=== PATIENT | female | born 1945 | race Caucasian/White ===

== ENCOUNTER 2016-09-28 10:26 | Emergency (ER) | payer MEDICARE | END 2016-09-28 11:30 | disposition home or self-care (01) | DX: R07.89 Other chest pain (principal); M79.7 Fibromyalgia ==

== ENCOUNTER 2018-09-20 12:53 | Outpatient (CLI) | payer MEDICARE ==
--- NOTE | 2018-09-23 09:36 | DEXA Report ---
Reason: OSTEOPOROSIS SCREENING Procedure Date: 09/20/2018 Accession Number: [id number] / [id number] Procedure: DEX - Dexa Spine and/or Hip CPT Code: FULL RESULT: EXAM: Dexa Spine and/or Hip DATE: 09/20/2018 1:32 PM CLINICAL HISTORY: OSTEOPOROSIS SCREENING TECHNIQUE: Dual energy x-ray absorptiometry (DXA) was performed on a ishBowl System. Regions measured are the AP Spine, femoral neck, and if needed forearm. COMPARISON: None. In accordance with the International Society for Clinical Densitometry (ISCD) guidelines, data from previous exams may be reanalyzed using current recommendations and techniques. This is done to allow a more accurate basis for comparison with the current study. FINDINGS: The data for the lumbar spine is as follows: BMD (g/cm/cm) T-SCORE Z-SCORE REGION L1 1.096 -0.3 0.7 L2 1.208 0.1 1.1 L3 1.221 0.2 1.2 L4 1.012 -1.6 -0.6 TOTAL 1.128 -0.4 0.5 NOTE: All evaluable vertebrae are used for classification The data for the hip is as follows: BMD (g/cm/cm) T-SCORE Z-SCORE REGION Neck 0.820 -1.6 -0.3 TOTAL 0.947 -0.5 0.6 NOTE: The femoral neck or total proximal femur, whichever is lowest, is used for classification. IMPRESSION: THE WHO CLASSIFICATION BASED ON THE INTERNATIONAL REFERENCE STANDARD IS OSTEOPENIA. THE FRACTURE RISK IS INCREASED. RECOMMENDATION: Patients with diagnosis of osteoporosis or osteopenia should have regular bone mineral density assessment. For those eligible for Medicare, routine testing is allowed once every 2 years. Testing frequency can be increased for patients who have rapidly progressing disease or for those who are receiving medical therapy to restore bone mass. COMMENT: World Health Organization (WHO) definitions for osteoporosis and osteopenia: NORMAL BMD: T-score at -1.0 or higher, fracture risk is low OSTEOPENIA BMD: T-score between -1.0 and -2.5, fracture risk is increased. OSTEOPOROSIS BMD: T-score at -2.5 or lower, fracture risk is high. National Osteoporosis Foundation recommends: 1. Obtain adequate dietary calcium (at least 1200 mg per day) and vitamin D (400-800 international units per day). 2. Participate, as appropriate, in regular weightbearing and muscle-strengthening exercise. 3. Avoid tobacco use and reduce alcohol and caffeine intake. 4. For more detailed information see the website at www.NOF.org.
== END 2018-09-20 12:54 | disposition home or self-care (01) ==
LOC: DI 12:53
PROVIDERS: ATTEND Student in an Organized Health Care Education/Training Program
DX: Z13.820 Encounter for screening for osteoporosis (principal); M85.88 Other specified disorders of bone density and structure, other site
CPT/HCPCS: 77080

== ENCOUNTER 2018-09-26 13:45 | Outpatient (CLI) | payer MEDICARE ==
--- NOTE | 2018-09-27 09:11 | Mammography Report ---
Reason: SCREENING MAMMO Procedure Date: 09/26/2018 Accession Number: [id number] / [id number] Procedure: ELAINA - Screening Mammo w/Thanh CPT Code: FULL RESULT: EXAM: Screening Mammo w/Thanh DATE: 09/26/2018 4:25 PM CLINICAL HISTORY: Screening encounter. No reported risk factors. TECHNIQUE: Bilateral CC and MLO views were obtained. COMPARISON: 03/17/2016 and 10/08/2014. FINDINGS: The breasts demonstrate diffuse fatty replacement bilaterally. There are bilateral coarse typically benign calcifications. No suspicious masses, clustered microcalcifications, or regions of architectural distortion are identified. IMPRESSION: Benign findings RECOMMENDATION: Routine annual screening unless otherwise clinically indicated. BIRADS CATEGORY 2: Benign findings STANDARD QUALIFYING STATEMENTS: 1. This examination was not reviewed with the aid of Computer-Aided Detection (CAD). 2. A negative or benign imaging report should not preclude biopsy if clinically suspicious findings are present. 3. Dense breasts may obscure an underlying neoplasm. 4. This examination was reviewed with the aid of 3D breast imaging (tomosynthesis).
== END 2018-09-26 13:46 | disposition home or self-care (01) ==
LOC: DI 13:45
PROVIDERS: ATTEND Student in an Organized Health Care Education/Training Program
DX: Z12.31 Encounter for screening mammogram for malignant neoplasm of breast (principal)
CPT/HCPCS: 77063; 77067

== ENCOUNTER 2021-03-18 11:44 | Emergency (ER) | payer MEDICARE ==
[2021-03-18 12:27] LABS: BASOPHILS % (AUTO) 0.4 %; EOSINOPHILS # (AUTO) 0.1 10^3/uL (0.0-0.7); EOSINOPHILS % (AUTO) 1.3 %; HCT - HEMATOCRIT 39.8 % (37.0-47.0); HGB - HEMOGLOBIN 13.1 g/dL (12.0-16.0); LYMPHOCYTES # (AUTO) 2.4 10^3/uL (1.5-3.5); LYMPHOCYTES % (AUTO) 29.7 %; MEAN CORPUSCULAR HEMOGLOBIN 30.5 pg (27.0-31.0); MEAN CORPUSCULAR HGB CONC 32.9 g/dL (32.0-36.0); MEAN CORPUSCULAR VOLUME 92.8 fL (81.0-99.0); MEAN PLATELET VOLUME 9.5 fL (7.9-10.8); MONOCYTES # (AUTO) 0.8 10^3/uL (0.0-1.0); MONOCYTES % (AUTO) 9.9 %; NEUTROPHILS # (AUTO) 4.6 10^3/uL (1.5-6.6); NEUTROPHILS % (AUTO) 58.3 %; PLT - PLATELET COUNT 261 10^3/uL (130-450); RED BLOOD COUNT 4.29 10^6/uL (4.20-5.40); RED CELL DISTRIBUTION WIDTH 13.4 % (12.0-15.0); WHITE BLOOD COUNT 7.9 x10^3/uL (4.8-10.8)
[2021-03-18] MEDS ORDERED: IOVERSOL 320 100 ML VIAL IVP ONE ×2 (12:36→13:11)
[2021-03-18 12:37] LABS: ALBUMIN 4.6 g/dL (3.2-5.5); ALBUMIN/GLOBULIN RATIO 1.2 (1.0-2.2); BILIRUBIN,TOTAL 0.8 mg/dL (0.2-1.0); CREATININE 0.8 mg/dL (0.4-1.0); POTASSIUM 4.3 mmol/L (3.5-5.0); TOTAL PROTEIN 8.3 g/dL (6.7-8.2)
--- NOTE | 2021-03-18 12:39 | ED Physician Documentation ---
PD HPI ABD PAIN - Stated complaint Stated Complaint: LEFT SIDE PX - Chief complaint Chief Complaint: Abd Pain - History obtained from History obtained from: Patient - History of Present Illness Timing - onset: Today, How many days ago (2) Timing - duration: Days (2) Timing - details: Gradual onset Pain level max: 7 Pain level now: 6 Quality: Aching, Pain Location: RLQ, LLQ Radiation: No: Chest, , Lower back, Left flank, Left shoulder, Right flank, Right shoulder, Upper back Improved by: No: Eating, Laying still, Vomiting, BM, Position, Meds Worsened by: No: Eating, Moving, Breathing, Position, Palpation Associated symptoms: Constipation. No: Nausea, Vomiting - Additional information Additional information: 75-year-old female presents to the emergency department stating that she had right-sided lower abdominal pain yesterday and today has developed left-sided lower abdominal pain. Nothing makes it better or worse. Had a colonoscopy a few months ago which was normal other than a polyp. She states she was constipated recently and had to strain on the toilet to have a bowel movement. She states that the pain began after that. No fevers. No chills. No recent antibiotics. No trauma or falls. 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 - Present Medications Home Medications: Ambulatory Orders Medication Instructions Recorded Confirmed Lisinopril 20 mg PO DAILY 09/28/16 03/18/21 Amox/Clav 875/125 [Augmentin] 1 each PO Q8H #30 tablet 03/18/21 Ezetimibe [Zetia] 10 mg PO DAILY 03/18/21 03/18/21 Ondansetron Odt [Zofran] 4 mg TL Q6H PRN #10 tablet 03/18/21 Oxycodone HCl [Roxicodone] 5 mg PO Q6HR PRN #14 tablet 03/18/21 traMADol [Ultram] 50 mg PO Q6HR PRN 03/18/21 03/18/21 - Allergies Allergies/Adverse Reactions: Allergies Allergy/AdvReac Type Severity Reaction Status Date / Time codeine AdvReac Unknown Verified 03/18/21 11:59 - Social History Does the pt smoke?: No Smoking Status: Never smoker Does the pt drink ETOH?: No Does the pt have substance abuse?: No PD ED PE NORMAL - Vitals Vital signs reviewed: Yes - General General: Alert and oriented X 3, No acute distress, Well developed/nourished - HEENT HEENT: Moist mucous membranes - Neck Neck: Supple, no meningeal sign - Cardiac Cardiac: RRR - Respiratory Respiratory: No respiratory distress, Clear bilaterally - Abdomen Abdomen: Soft, Non distended, Other (Mild tenderness to palpation left lower quadrant. No peritoneal signs. No pain with range of motion of the leg. No CVA tenderness) - Back Back: No CVA TTP, No spinal TTP - Derm Derm: Warm and dry - Extremities Extremities: Normal ROM s pain, Other (Neurovascular intact. Good pulses) - Neuro Neuro: Alert and oriented X 3, No motor deficit, No sensory deficit - Psych Psych: Normal mood, Normal affect Results - Vitals Vitals: Vital Signs - 24 hr 03/18/21 11:54 Temperature 36.1 C L Heart Rate 91 Respiratory 16 Rate Blood Pressure 145/89 H O2 Saturation 97 Oxygen O2 Source Room air - Labs Labs: Laboratory Tests 03/18/21 03/18/21 03/18/21 12:16 12:16 13:15 WBC 7.9 RBC 4.29 Hgb 13.1 Hct 39.8 MCV 92.8 MCH 30.5 MCHC 32.9 RDW 13.4 Plt Count 261 MPV 9.5 Neut # (Auto) 4.6 Lymph # (Auto) 2.4 Roane # (Auto) 0.8 Eos # (Auto) 0.1 Baso # (Auto) 0.0 Absolute Nucleated RBC 0.00 Nucleated RBC % 0.0 Sodium 136 Potassium 4.3 Chloride 100 L Carbon Dioxide 26 Anion Gap 10.0 BUN 11 Creatinine 0.8 Estimated GFR (MDRD) 70 L Glucose 114 H Calcium 10.0 Total Bilirubin 0.8 AST 24 ALT 19 Alkaline Phosphatase 70 Total Protein 8.3 H Albumin 4.6 Globulin 3.7 Albumin/Globulin Ratio 1.2 Lipase 24 Urine Color YELLOW Urine Clarity CLEAR Urine pH 6.0 Ur Specific Alexis 1.025 Urine Protein NEGATIVE Urine Glucose (UA) NEGATIVE Urine Ketones NEGATIVE Urine Occult Blood NEGATIVE Urine Nitrite NEGATIVE Urine Bilirubin NEGATIVE Urine Urobilinogen 0.2 (NORMAL) Ur Leukocyte Esterase SMALL H Urine RBC 0-5 Urine WBC 4-5 Ur Squamous Epith Cells MOD Squamous H Urine Bacteria Rare Urine Mucus Moderate Strands Ur Microscopic Review INDICATED Urine Culture Comments NOT INDICATED - Rads (name of study) CT abdomen pelvis Radiology: Prelim report reviewed, EMP read contemporaneously, See rad report (Acute uncomplicated diverticulitis involving the proximal sigmoid colon in the left lower quadrant. No abscess collection. No evidence of perforation. No free fluid or free air. Right ventral hernia containing fat only.) PD MEDICAL DECISION MAKING - ED course Complexity details: reviewed results, re-evaluated patient, considered differential, d/w patient ED course: 75-year-old female with what appears to be acute diverticulitis on CT scan. No fever or leukocytosis. Discussed risks and benefits of antibiotics versus watchful waiting to see if this resolves, patient has elected antibiotics at this time. Patient is well-appearing, nontoxic. Afebrile. Patient counseled regarding signs and symptoms for which I believe and urgent re-evaluation would be necessary. Patient with good understanding of and agreement to plan and is comfortable going home at this time This document was made in part using voice recognition software. While efforts are made to proofread this document, sound alike and grammatical errors may occur. I am prescribing a short course of short-acting opioid pain medication for this patient. I have reviewed the patients [employer] and no concerning findings were noted. I have discussed that the opioids are for short term therapy only, and will not be refilled from the ED. Departure - Departure Disposition: 01 Home, Self Care Clinical Impression: Diverticulitis Condition: Good Instructions: ED Diverticulitis Follow-Up: SKYLAR LLOYD PA [Primary Care Provider] - Within 1 week Prescriptions: Oxycodone HCl [Roxicodone] 5 mg PO Q6HR PRN #14 tablet PRN Reason: Abdominal Pain Amox/Clav 875/125 [Augmentin] 1 each PO Q8H #30 tablet Ondansetron Odt [Zofran] 4 mg TL Q6H PRN #10 tablet PRN Reason: Nausea / Vomiting Comments: Follow-up with your doctor for further care. Take all antibiotics until gone. Return if you worsen. I am prescribing a short course of narcotic pain medication for you. These are potentially dangerous and addictive medications that should be used carefully. These medications may constipate you. Take an zriz-mug-yvdbsga stool softener (docusate) twice daily with plenty of water while taking these medications. If you go 24 hours without a bowel movement, take pfem-qhj-utshedx miralax, per or ann instructions. Do not drink or drive while taking these medications. If you received narcotic or sedating medications while in the emergency department, do not drive for 24 hours. Store this medication in a safe, secure place and out of reach of children. It is a violation of federal law to give or sell this medication to another person or to use in a manner other than prescribed. The ED will not refill narcotic prescriptions, including prescriptions lost or stolen. To dispose of unwanted medications: 1. [facility] at [address] in [place] has a medication drop box. They accept prescription medications (in pill form) Sunday through Sunday 9:00 a.m. to 5:00 p.m. 2. The [facility] [employer] [facility] accepts prescription medications (in pill form only) for disposal year round. Call for more information. 3. Contact the [facility] for the next [facility] sponsored prescription drug collection event. , [phone], or [phone];
[2021-03-18 13:23] LABS: BILIRUBIN,URINE NEGATIVE (NEGATIVE); GLUCOSE, URINE (UA) NEGATIVE (NEGATIVE); KETONES,URINE (UA) NEGATIVE (NEGATIVE); LEUKOCYTE ESTERASE, URINE SMALL (NEGATIVE); NITRITE,URINE NEGATIVE (NEGATIVE); OCCULT BLOOD,URINE NEGATIVE (NEGATIVE); PROTEIN,URINE NEGATIVE (NEGATIVE); UROBILINOGEN,URINE 0.2 (NORMAL) E.U./dL (NORMAL)
[2021-03-18 13:24] LABS: CLARITY,URINE CLEAR (CLEAR)
[2021-03-18 13:31] LABS: BACTERIA,URINE Rare /HPF (None Seen); MUCUS,URINE Moderate Strands; RBC,URINE 0-5 /HPF (0-5); SQUAMOUS EPITHELIAL CELL,UR MOD Squamous (<= Few)
--- NOTE | 2021-03-18 13:42 | CT Report ---
PROCEDURE: Abdomen/Pelvis W INDICATIONS: LLQ abd pain, diverticulitis suspected CONTRAST: IV CONTRAST: Optiray 320 ml: 100 PO CONTRAST: *NO PO CONTRAST TECHNIQUE: After the administration of IV contrast, 5 mm thick sections acquired from the diaphragms to the symp hysis. 5 mm thick coronal and sagittal reformats were acquired. For radiation dose reduction, the f ollowing was used: automated exposure control, adjustment of mA and/or kV according to patient size. COMPARISON: None. FINDINGS: Image quality: Excellent. ABDOMEN: Lung bases: Mild bibasilar dependent atelectasis is seen.. Heart size is normal. Solid organs: Liver and spleen are normal in size and enhancement. Gallbladder is surgically absent . Biliary system is non dilated. Pancreas enhances normally. No adrenal nodules. Kidneys demonstr ate normal size and enhancement, without hydronephrosis. Peritoneum and bowel: There is no bowel obstruction. No gastric or small bowel wall thickening. Sigmo id diverticulosis is seen. There is significant wall thickening and mesenteric fat stranding involvin g proximal sigmoid colon in the left lower quadrant abdomen series 3 image 61 and series 6 image 37 c onsistent with acute diverticulitis. No abscess collection. No free fluid or free air. Nodes and vessels: No retroperitoneal or mesenteric adenopathy by size criteria. Aorta and inferior vena cava are normal in size. Miscellaneous: There is right ventral hernia just lateral to midline containing fat only. PELVIS: Genitourinary: Bladder wall thickness is normal. Miscellaneous: No inguinal hernias or adenopathy. Bones: No suspicious bony lesions. No vertebral body compression fractures. IMPRESSION: 1. Acute uncomplicated diverticulitis involving proximal sigmoid colon in left lower quadrant. No abs cess collection. No evidence of perforation. No free fluid or free air. 2. Right ventral hernia containing fat only. Reviewed by: Michael Wheat MD on 03/18/2021 1:40 PM PDT Approved by: Michael Wheat MD on 03/18/2021 1:40 PM PDT Station ID: [id number]
[2021-03-18 13:54] VITALS: BP 131/84
== END 2021-03-18 13:54 | disposition home or self-care (01) ==
LOC: ED 11:44
DX: K57.32 Diverticulitis of large intestine without perforation or abscess without bleeding (principal); I10 Essential (primary) hypertension
CPT/HCPCS: 36415; 74177; 80053; 81001; 83690; 85025; 99284; Q9967; 81003; 87086

== ENCOUNTER 2021-07-31 15:19 | Outpatient (CLI) | payer MEDICARE ==
--- NOTE | 2021-08-02 13:46 | Mammography Report ---
BILATERAL DIGITAL SCREENING MAMMOGRAM 3D/2D: 07/31/2021 CLINICAL: Routine screening. Comparison is made to exams dated: 09/26/2018 mammogram, 03/17/2016 mammogram, and 10/08/2014 mammogram - [facility]. The tissue of both breasts is predominantly fatty. No significant masses, calcifications, or other findings are seen in either breast. There has been no significant interval change. IMPRESSION: NEGATIVE There is no mammographic evidence of malignancy. A 1 year screening mammogram is recommended. This exam was interpreted at Station ID: [id number]. NOTE: For mammograms, a report in lay terms will be sent to the patient. Approximately 15% of breast malignancies will not be visualized mammographically. In the management of a palpable breast mass, a negative mammogram must not discourage biopsy of a clinically suspicious lesion. Electronically Signed By: Ramses Parekh M.D., jr/derrek:08/01/2021 10:01:13 ACR BI-RADS Category 1: Negative 3341F PARENCHYMAL PATTERN: (F) - The breast(s) demonstrate(s) diffuse fatty replacement. BI-RADS CATEGORY: (1) - 1 RECOMMENDATION: (ANNUAL) - Recommend routine annual screening mammography. [id number] 1 year screening LATERALITY: (B)
== END 2021-07-31 15:20 | disposition home or self-care (01) ==
LOC: DI.S 15:19
DX: Z12.31 Encounter for screening mammogram for malignant neoplasm of breast (principal)

== ENCOUNTER 2023-05-22 07:10 | Outpatient (CLI) | payer MEDICARE ==
--- NOTE | 2023-05-22 10:00 | XRAY Report ---
PROCEDURE: Hand 2 View BILAT INDICATIONS: EROSIVE OSTEOARTHROSIS TECHNIQUE: 2 views of the hand(s) acquired. COMPARISON: None. FINDINGS: Bones: No fractures or dislocations. Osteoarthritic changes are noted throughout bilateral hand and wrist joints most notably involving bilateral second through fifth PIP and DIP joints with features suggestive of erosive osteoarthritis. Similar changes also seen involving bilateral first CMC joint a nd first interphalangeal joints. No suspicious bony lesions. Soft tissues: No suspicious soft tissue calcifications or masses. 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 Reviewed by: Michael Wheat MD on 05/22/2023 9:59 AM PDT Approved by: Michael Wheat MD on 05/22/2023 9:59 AM PDT Station ID: [id number]
[2023-05-22 14:55] LABS: BASOPHILS % (AUTO) 0.6 %; EOSINOPHILS # (AUTO) 0.1 10^3/uL (0.0-0.7); EOSINOPHILS % (AUTO) 2.5 %; HCT - HEMATOCRIT 41.1 % (37.0-47.0); LYMPHOCYTES # (AUTO) 2.3 10^3/uL (1.5-3.5); LYMPHOCYTES % (AUTO) 47.8 %; MEAN CORPUSCULAR HEMOGLOBIN 30.4 pg (27.0-31.0); MEAN CORPUSCULAR HGB CONC 31.6 g/dL (32.0-36.0); MEAN CORPUSCULAR VOLUME 96.3 fL (81.0-99.0); MEAN PLATELET VOLUME 10.2 fL (7.9-10.8); MONOCYTES # (AUTO) 0.5 10^3/uL (0.0-1.0); MONOCYTES % (AUTO) 9.5 %; NEUTROPHILS # (AUTO) 1.9 10^3/uL (1.5-6.6); NEUTROPHILS % (AUTO) 39.6 %; PLT - PLATELET COUNT 289 10^3/uL (130-450); RED BLOOD COUNT 4.27 10^6/uL (4.20-5.40); RED CELL DISTRIBUTION WIDTH 14.2 % (12.0-15.0); WHITE BLOOD COUNT 4.7 x10^3/uL (4.8-10.8)
[2023-05-22 15:29] LABS: ALBUMIN 4.5 g/dL (3.2-5.5); ALBUMIN/GLOBULIN RATIO 1.5 (1.0-2.2); ALKALINE PHOSPHATASE 68 IU/L (42-121); ALT ALANINE AMINOTRANSFERASE 14 IU/L (10-60); AST ASPARTATE AMINOTRANSFERASE 20 IU/L (10-42); BILIRUBIN,TOTAL 0.7 mg/dL (0.2-1.0); BUN - BLOOD UREA NITROGEN 21 mg/dL (6-20); CARBON DIOXIDE - CO2 28 mmol/L (21-32); CHLORIDE 105 mmol/L (101-111); CHOLESTEROL 215 mg/dL; CREATININE 0.7 mg/dL (0.6-1.3); GFR - MDRD 81 (>89); GLUCOSE 101 mg/dL (74-104); HDL CHOLESTEROL 54 mg/dL; LDL CHOLESTEROL,CALCULATED 120 mg/dL; LDL/HDL RATIO 2.2 (<4.4); POTASSIUM 4.5 mmol/L (3.5-4.5); SODIUM 137 mmol/L (135-145); TOTAL PROTEIN 7.5 g/dL (6.4-8.9); TRIGLYCERIDES 204 mg/dL (48-352); VLDL CHOLESTEROL 41 mg/dL
[2023-05-22 15:43] LABS: THYROID STIMULATING HORMONE 1.54 uIU/mL (0.34-5.60)
[2023-05-22 20:56] LABS: ESTIMATED AVERAGE GLUCOSE 117 mg/dL (70-100); HEMOGLOBIN A1c% 5.7 % (4.27-6.07)
== END 2023-05-22 07:11 | disposition home or self-care (01) ==
LOC: DI.S 07:10
PROVIDERS: ATTEND Internal Medicine
DX: M15.4 Erosive (osteo)arthritis (principal); I10 Essential (primary) hypertension; R63.5 Abnormal weight gain; G47.00 Insomnia, unspecified; F41.9 Anxiety disorder, unspecified; K21.9 Gastro-esophageal reflux disease without esophagitis
CPT/HCPCS: 36415; 80053; 80061; 83036; 83721; 84443; 85025

== ENCOUNTER 2023-12-12 13:04 | Outpatient (CLI) | payer MEDICARE ==
[2023-12-12 19:53] LABS: BASOPHILS % (AUTO) 0.6 %; EOSINOPHILS # (AUTO) 0.1 10^3/uL (0.0-0.7); EOSINOPHILS % (AUTO) 2.5 %; HCT - HEMATOCRIT 40.1 % (37.0-47.0); HGB - HEMOGLOBIN 12.5 g/dL (12.0-16.0); LYMPHOCYTES # (AUTO) 2.3 10^3/uL (1.5-3.5); LYMPHOCYTES % (AUTO) 44.6 %; MEAN CORPUSCULAR HEMOGLOBIN 29.7 pg (27.0-31.0); MEAN CORPUSCULAR HGB CONC 31.2 g/dL (32.0-36.0); MEAN CORPUSCULAR VOLUME 95.2 fL (81.0-99.0); MEAN PLATELET VOLUME 10.3 fL (7.9-10.8); MONOCYTES # (AUTO) 0.5 10^3/uL (0.0-1.0); MONOCYTES % (AUTO) 9.1 %; NEUTROPHILS # (AUTO) 2.2 10^3/uL (1.5-6.6); PLT - PLATELET COUNT 279 10^3/uL (130-450); RED BLOOD COUNT 4.21 10^6/uL (4.20-5.40); RED CELL DISTRIBUTION WIDTH 14.5 % (12.0-15.0); WHITE BLOOD COUNT 5.2 x10^3/uL (4.8-10.8)
[2023-12-12 20:26] LABS: ALBUMIN 4.5 g/dL (3.2-5.5); ALBUMIN/GLOBULIN RATIO 1.6 (1.0-2.2); BILIRUBIN,TOTAL 0.5 mg/dL (0.2-1.0); CREATININE 0.8 mg/dL (0.6-1.3); POTASSIUM 4.2 mmol/L (3.5-4.5); TOTAL PROTEIN 7.4 g/dL (6.4-8.9)
[2023-12-12 20:34] LABS: THYROID STIMULATING HORMONE 2.85 uIU/mL (0.34-5.60)
[2023-12-12 20:39] LABS: FERRITIN 22.1 ng/mL (11.0-306.8)
[2023-12-12 21:18] LABS: ESTIMATED AVERAGE GLUCOSE 114 mg/dL (70-100); HEMOGLOBIN A1c% 5.6 % (4.27-6.07)
== END 2023-12-12 13:05 | disposition home or self-care (01) ==
LOC: LAB.S 13:04
PROVIDERS: ATTEND Internal Medicine
DX: I10 Essential (primary) hypertension (principal); L65.0 Telogen effluvium; K76.0 Fatty (change of) liver, not elsewhere classified; R63.5 Abnormal weight gain
CPT/HCPCS: 36415; 80053; 82728; 83036; 83540; 84443; 84466; 85025; 86803

== ENCOUNTER 2024-01-25 12:37 | Outpatient (CLI) | payer MEDICARE ==
--- NOTE | 2024-01-25 14:24 | XRAY Report ---
PROCEDURE: Lumbar Spine 2-3V INDICATIONS: Pain TECHNIQUE: 3 views of the lumbar spine were acquired. COMPARISON: None. FINDINGS: Bones: 5 cdp-cdw-dyhnuaz vertebrae are present. Slight dextroconvex curvature centered at L2. Retrol isthesis of L1 on L2 and L2 on L3 of approximately 3 mm. Anterolisthesis of L4 on L5 of approximately 2 mm. Anterolisthesis of L5 on S1 of approximately 7 mm. No visualized pars defects. Moderate disc h eight loss at L1-L2, L2-L3, L4 4 L5 and L5-S1. L3-L4 disc height is maintained. Multilevel osteophyto sis and facet arthropathy. Mild multilevel osseous neural foraminal narrowing which spares L3-L4. No vertebral body compression fractures. No suspicious bony lesions. Soft tissues: Overlying bowel gas pattern is normal. No suspicious soft tissue calcifications. Cho lecystectomy clips. IMPRESSION: 1.No acute osseous abnormality. 2.Multilevel degenerative changes which is worse at L2-L3 where there is moderate disc height loss, o steophytosis, retrolisthesis and associated osseous neural foraminal narrowing. Reviewed by: Monserrat Ayon MD on 01/25/2024 2:22 PM PDT Approved by: Monserrat Ayon MD on 01/25/2024 2:22 PM PDT Station ID: [id number]
--- NOTE | 2024-01-25 14:27 | XRAY Report ---
PROCEDURE: Cervical Spine w/Flex/Ext 6+V INDICATIONS: Pain TECHNIQUE: 8 views of the cervical spine were acquired. COMPARISON: None. FINDINGS: Bones: No fractures or dislocations to the C7 level. No suspicious bony lesions. Straightening of t he normal cervical lordosis. Retrolisthesis of C5 on C6 of approximately 3 mm. Moderate multilevel de generative changes with osteophytosis, disc height loss and facet/uncal arthropathy, notably at C4-C5 and C5-C6. There is limited range of motion between flexion and extension, with preserved bony align ment. The lateral masses of C1 align on the odontoid view. Oblique views demonstrate multilevel osseo us neural foraminal narrowing. Soft tissues: Prevertebral soft tissues are normal in thickness. Visualized lung apices are clear. IMPRESSION: 1.No acute fracture or traumatic subluxation of the cervical spine. 2.Limited range of motion without abnormal subluxation. 3.Zdfj-uh-scrmiwas multilevel degenerative changes with multilevel osseous neural foraminal narrowing , worse at C4-C5 and C5-C6. If clinical symptoms persist, consider MRI for further evaluation. Reviewed by: Monserrat Ayon MD on 01/25/2024 2:26 PM PDT Approved by: Monserrat Ayon MD on 01/25/2024 2:26 PM PDT Station ID: [id number]
[2024-01-25 20:28] LABS: RHEUMATOID FACTOR NEGATIVE (Negative)
[2024-01-25 20:50] LABS: CRP - C-REACTIVE PROTEIN < 0.5 mg/dL (<0.5); URIC ACID 5.4 mg/dL (2.3-6.6)
== END 2024-01-25 12:38 | disposition home or self-care (01) ==
LOC: DI.S 12:37
PROVIDERS: ATTEND Internal Medicine
DX: M47.816 Spondylosis without myelopathy or radiculopathy, lumbar region (principal); M47.817 Spondylosis without myelopathy or radiculopathy, lumbosacral region; M43.16 Spondylolisthesis, lumbar region; M48.061 Spinal stenosis, lumbar region without neurogenic claudication; M47.812 Spondylosis without myelopathy or radiculopathy, cervical region
CPT/HCPCS: 36415; 84550; 86140; 86200; 86430